=== PATIENT | male | born 2000 | race Caucasian/White ===

== ENCOUNTER 2018-07-29 13:51 | Emergency (ER) | payer OTHER ==
[~2018-07-29] VITALS: Ht 175.3 cm; Wt 53.5 kg
[2018-07-29] MEDS ORDERED: IBUPROFEN 600600 M1 PO (14:54)
[2018-07-29 15:00] VITALS: BP 112/74
--- NOTE | 2018-07-31 11:10 | EKG ---
[place] [address] ELECTROCARDIOGRAM REPORT Name: CELI SALMON Room: [facility]#: [id number] Admission: 07/29/18 Attend Phys: Discharge: 07/29/18 Date of : [birth year] Report #: [id number] THIS REPORT FOR: //name// [facility] ED Test Date: 2018-07-29 Test Time: 13:56:14 Pat Name: CELI SALMON Department: Room: Gender: M [employer] Machine Operator: Nayla BEE : 2000 Requested By: Martha Roberts Order Number: [id number] MD: Merlin Ledesma Measurements Intervals [place] Rate: 82 P: 64 ND: 137 QRS: 86 QRSD: 89 T: 53 QT: 352 QTc: 411 Interpretive Statements Sinus rhythm No previous ECG available for comparison Electronically Signed On 07-31-2018 11:10:02 SHELTER MONITOR by Merlin Ledesma [email or web address] <ELECTRONICALLY SIGNED> By: Merlin Ledesma MD, [facility] 07/31/18 1110 1356 1356 Merlin Ledesma MD, FACC /EPI
== END 2018-07-29 15:00 | disposition home or self-care (01) ==
LOC: M.ERS 13:51
DX: R07.89 Other chest pain (principal)